=== PATIENT | female | born 1985 | race Caucasian/White ===

== ENCOUNTER → 2016-06-11 | Outpatient (CLI) | payer BC ==
--- NOTE | 2016-06-11 14:40 | DIAGNOSTIC IMAGING REPORT ---
CHEST 2 VIEWS ROUTINE CLINICAL HISTORY: PALPITATIONS cardiac arrhythmia COMPARISON STUDY: No previous studies for comparison. FINDINGS: The bones soft tissues and hemidiaphragms are normal. The cardiomediastinal silhouette is normal. The lungs are clear. The pulmonary vasculature is normal. IMPRESSION: Negative chest. Electronically signed by: Kavon Alford M.D. 06/11/2016 2:39 PM Dictated Date/Time: 06/11/2016 2:39 PM
== END | disposition home or self-care (01) ==
LOC: C.RAD1850 14:26
PROVIDERS: ATTEND Family Medicine
DX: R00.2 Palpitations (principal); I37.0 Nonrheumatic pulmonary valve stenosis; Q24.3 Pulmonary infundibular stenosis